=== PATIENT | female | born 1990 | race Caucasian/White ===

== ENCOUNTER 2016-09-08 12:12 | Outpatient (RCR) | payer BC ==
[~2016-09-08 12:12] MED LIST: AMOX500C5 PO
[2016-09-08] MEDS ORDERED: SODIUM CHLORIDE FLUSH 10 ML ONE (12:21)
[2016-09-08] MEDS: NS FLUSH 10 ML PRN IV ×2 (12:30→14:08)
[2016-09-08] MEDS ORDERED: ceFAZolin 1,000 MG in SODIUM CHLORIDE VIAL (PF) 10 ML IV ONE (13:25)
[2016-09-08] MEDS ORDERED: ONDANSETRON 2 MG/ML (Z0FRAN) 2 ML VIAL IV ONE (13:25)
[2016-09-08] MEDS ORDERED: FAMOTIDINE 10 MG/ML IV ONE (13:25)
[2016-09-08] MEDS ORDERED: NS FLUSH 3 ML PRN IV (13:25)
[2016-09-08] MEDS ORDERED: METOCLOPRAMIDE 10 MG/2 ML (REGLAN) VIAL IV ONE (13:25)
[2016-09-08] MEDS ORDERED: MULTIVITAMIN IV SCH (13:45)
[2016-09-08] MEDS ORDERED: THIAMINE IV SCH (13:45)
[2016-09-08] MEDS ORDERED: [UNRECOGNIZED DRUG - OTHER] IV SCH (13:45)
[2016-09-08] MEDS ORDERED: MAGNESIUM SULFATE IV SCH (13:45)
[2016-09-08 16:15] VITALS: BP 130/72
== END 2016-11-12 18:33 | disposition home or self-care (01) ==
LOC: OB 12:12 → EUOP 12:12
PROVIDERS: ATTEND Obstetrics & Gynecology Obstetrics
DX: R11.10 Vomiting, unspecified (principal); N39.0 Urinary tract infection, site not specified
CPT/HCPCS: 96365; 96366; 96375; J0690; J2405; J2765; J3411; J3475; J3490; J7050; J7120